=== PATIENT | male | born 1995 | race Two or more races ===

== ENCOUNTER 2022-05-26 23:40 | Emergency (ER) | payer BC, SELFPAY ==
[2022-05-26 23:43] VITALS: BP 135/85; PULSE 68; RESP 16; TEMP 36.4; O2SAT 97; BMI 27.0
--- NOTE | 2022-05-27 01:13 | CT_ITS ---
PROCEDURE INFORMATION: Exam: CT Cervical Spine Without Contrast Exam date and time: 05/27/2022 1:28 AM Age: 27 years old Clinical indication: Weakness; Additional info: Weakness/dizziness TECHNIQUE: Imaging protocol: Computed tomography of the cervical spine without contrast. Radiation optimization: All CT scans at this facility use at least one of these dose optimization techniques: automated exposure control; mA and/or kV adjustment per patient size (includes targeted exams where dose is matched to clinical indication); or iterative reconstruction. REPORTING DATA: Count of CT and Cardiac NM exams in prior 12 months: This patient has received 0 known CTs and 0 known cardiac nuclear medicine studies in the 12 months prior to the current study. COMPARISON: CT HEAD/BRAIN WO CON 05/27/2022 1:26 AM FINDINGS: Bones/joints: No acute fracture. Normal alignment. No significant disc bulge or herniation. No severe spinal canal stenosis. No significant neural foraminal narrowing. Lungs: Lung apices are normal. Soft tissues: Unremarkable. IMPRESSION: No acute findings.
--- NOTE | 2022-05-27 01:13 | CT_ITS ---
PROCEDURE INFORMATION: Exam: CT Head Without Contrast Exam date and time: 05/27/2022 1:26 AM Age: 27 years old Clinical indication: Dizziness and weakness, extremity; Additional info: Weakness/dizziness TECHNIQUE: Imaging protocol: Computed tomography of the head without contrast. Radiation optimization: All CT scans at this facility use at least one of these dose optimization techniques: automated exposure control; mA and/or kV adjustment per patient size (includes targeted exams where dose is matched to clinical indication); or iterative reconstruction. REPORTING DATA: Count of CT and Cardiac NM exams in prior 12 months: This patient has received 0 known CTs and 0 known cardiac nuclear medicine studies in the 12 months prior to the current study. COMPARISON: No relevant prior studies available. FINDINGS: Brain: Normal. No hemorrhage. Unremarkable white matter. No mass effect. Cerebral ventricles: No ventriculomegaly. Paranasal sinuses: Visualized sinuses are unremarkable. No fluid levels. Mastoid air cells: Visualized mastoid air cells are well aerated. Bones/joints: Unremarkable. No acute fracture. Soft tissues: Unremarkable. IMPRESSION: No acute intracranial abnormality.
[2022-05-27 01:20] LABS: Basophils # 0.1 K/mm3 (0-0.2); Basophils % 0.7 % (0.1-2.0); Eosinophils # 0.1 K/mm3 (0.0-0.4); Eosinophils % 1.1 % (0.1-12.0); Hematocrit 45.7 % (42.0-52.0); Hemoglobin 14.9 g/dL (14.1-18.0); Lymphocytes # 2.8 K/mm3 (0.7-4.5); Lymphocytes % 34.8 % (10-50); Mean Corpuscular HGB Conc 32.6 g/dL (31.8-35.4); Mean Corpuscular Hemoglobin 28.7 pg (27.0-31.2); Mean Corpuscular Volume 88.2 fl (80-94); Monocytes # 0.6 K/mm3 (0.1-1.0); Monocytes % 7.2 % (1.7-9.3); Neutrophils # 4.5 K/mm3 (1.8-7.8); Neutrophils % 56.2 % (37.0-80.0); Platelet Count 172 K/mm3 (142-424); Red Blood Count 5.18 M/mm3 (4.60-6.20); Red Cell Distribution Width 12.9 % (11.5-17.5); White Blood Count 8.1 K/mm3 (4.8-10.8)
[2022-05-27 01:33] LABS: Alanine Aminotransferase 39 U/L (12-78); Albumin Level 4.4 g/dl (3.5-5.0); Albumin/Globulin Ratio 1.5 (1.1-1.8); Alkaline Phosphatase 75 U/L (38-126); Aspartate Amino Transferase 37 U/L (17-59); Bilirubin,Total 0.5 mg/dl (0.2-1.3); Blood Urea Nitrogen 23 mg/dl (9-20); Calcium 8.8 mg/dl (8.4-10.2); Carbon Dioxide 27 mmol/L (22.0-30.0); Chloride 103 mmol/L (98-107); Creatinine Clearance Estimated 143 mL/min (50-200); Estimated Glomerular Filt Rate 88 ml/min (>60); GFR (African American) 107 ML/MIN (>60); Globulin 2.9 g/dL (1.3-3.2); Glucose 110 mg/dl (74-100); Sodium 138 mmol/L (136-145); Total Protein,Serum 7.3 g/dl (6.3-8.2)
[2022-05-27 01:41] LABS: C-Reactive Protein < 0.3 mg/L (0-4)
[2022-05-27 01:49] LABS: Procalcitonin 0.033 ng/mL (0.0-2.0)
[2022-05-27 01:55] LABS: Erythrocyte Sedimentation Rate 7 mm/hr (0-15)
--- NOTE | 2022-05-27 02:26 | CT_ITS ---
PROCEDURE INFORMATION: Exam: CTA Head With Contrast, Arteriography Exam date and time: 05/27/2022 3:04 AM Age: 27 years old Clinical indication: Dizziness and giddiness and weakness; Additional info: Head pain TECHNIQUE: Imaging protocol: Computed tomographic angiography of the head with contrast. Exam focused on the arteries. 3D rendering (Not supervised by radiologist): MIP and/or 3D reconstructed images were created by the technologist. Radiation optimization: All CT scans at this facility use at least one of these dose optimization techniques: automated exposure control; mA and/or kV adjustment per patient size (includes targeted exams where dose is matched to clinical indication); or iterative reconstruction. Contrast material: ISOVUE; Contrast volume: 100 ml; Contrast route: INTRAVENOUS (IV); REPORTING DATA: Count of CT and Cardiac NM exams in prior 12 months: This patient has received 0 known CTs and 0 known cardiac nuclear medicine studies in the 12 months prior to the current study. COMPARISON: CT HEAD/BRAIN WO CON 05/27/2022 1:26 AM FINDINGS: ANTERIOR CIRCULATION: Right internal carotid artery: Intracranial segment is patent with no significant stenosis. No aneurysm identified. Right middle cerebral artery: No occlusion or significant stenosis. No aneurysm identified. Right anterior cerebral artery: No occlusion or significant stenosis. No aneurysm identified. Left internal carotid artery: Intracranial segment is patent with no significant stenosis. No aneurysm identified. Left middle cerebral artery: No occlusion or significant stenosis. No aneurysm identified. Left anterior cerebral artery: No occlusion or significant stenosis. No aneurysm identified. POSTERIOR CIRCULATION: Right vertebral artery: No occlusion or significant stenosis. No aneurysm identified. Left vertebral artery: No occlusion or significant stenosis. No aneurysm identified. Basilar artery: No occlusion or significant stenosis. No aneurysm identified . Right posterior cerebral artery: No occlusion or significant stenosis. No aneurysm identified. Left posterior cerebral artery: No occlusion or significant stenosis. No aneurysm identified . Brain: No definite mass, mass effect, or midline shift. Cerebral ventricles: No ventriculomegaly. Bones/joints: Unremarkable. No acute fracture. Soft tissues: Unremarkable. IMPRESSION: No large vessel stenosis or occlusion.
--- NOTE | 2022-05-27 02:26 | CT_ITS ---
PROCEDURE INFORMATION: Exam: CTA Neck With Contrast Exam date and time: 05/27/2022 3:04 AM Age: 27 years old Clinical indication: Dizziness and giddiness and weakness; Additional info: Head pain TECHNIQUE: Imaging protocol: Computed tomographic angiography of the neck with contrast. 3D rendering (Not supervised by radiologist): MIP and/or 3D reconstructed images were created by the technologist. Radiation optimization: All CT scans at this facility use at least one of these dose optimization techniques: automated exposure control; mA and/or kV adjustment per patient size (includes targeted exams where dose is matched to clinical indication); or iterative reconstruction. Contrast material: ISOVUE; Contrast volume: 100 ml; Contrast route: INTRAVENOUS (IV); REPORTING DATA: Count of CT and Cardiac NM exams in prior 12 months: This patient has received 0 known CTs and 0 known cardiac nuclear medicine studies in the 12 months prior to the current study. COMPARISON: CT CERVICAL SPINE WO CON 05/27/2022 1:28 AM FINDINGS: Right common carotid artery: No stenosis. No dissection or occlusion. Right internal carotid artery: No stenosis of the extracranial segment. No dissection or occlusion. Right external carotid artery: No occlusion or stenosis of the origin. Left common carotid artery: No stenosis. No dissection or occlusion. Left internal carotid artery: No stenosis of the extracranial segment. No dissection or occlusion. Left external carotid artery: No occlusion or stenosis of the origin. Right vertebral artery: No stenosis. No dissection or occlusion. Left vertebral artery: No stenosis. No dissection or occlusion. Soft tissues: Normal. No significant soft tissue swelling. Bones/joints: No acute fracture. IMPRESSION: No occlusion or hemodynamically significant stenosis of the extracranial carotid systems and vertebral arteries. REFERENCES: NASCET CRITERIA. The degree of stenosis in the cervical segment of the internal carotid artery is based on NASCET criteria. Normal is no stenosis. Mild is less than 50% stenosis. Moderate is 50-69% stenosis. Severe is 70% to 99% stenosis. Total occlusion is no detectable patent lumen.
--- NOTE | 2022-05-27 02:47 | [facility].EDWEAK ---
Discharge Plan Disposition Patient Disposition: Home, Self-Care Chief Complaint: Weakness Referrals Follow up/Referrals: Channing Ndiaye APRN [Primary Care Provider] - See instructions Clinical Impressions Clinical Impression: Weakness, Dizziness Instructions Patient Instructions: DI for Muscle Weakness Discharge ED Provider: Jefferson (ED)Eulalio HPI General Chief complaint: Weakness Stated complaint: weak in knees,SOA,Pressure top of head,dizziness Time Seen by Provider: 05/27/22 02:47 Mode of Arrival: Ambulatory Source of Information: Patient, Spouse and Medical Record Limitations: No Limitations Description of Symptoms (Recalled from ER Triage Doc. by RN): Pt arrives to ED with c/o BLE weakness and dizziness that is occuring when he stands up to ambulate. Pt stated this started when he had an episode of severe head pressure and dizziness around 2230 tonight. 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 History of Present Illness HPI Narrative: pt with hx of lt sided bells palsy about 3 weeks ago - and finished meds about 1 week ago and over the last few days has dizzyness with standing and legs weak - no trauma or fever and no rash MD Complaint: generalized weakness Onset (ago): day(s) Duration: intermittent Location: generalized Migration: none Severity: moderate Context: recent illness Associated symptoms: denies other symptoms Related Data Allergies Allergy/AdvReac Type Severity Reaction Status Date / Time No Known Allergies Allergy Verified 05/17/22 15:35 [facility] Disclaimer: The information contained in this section may have been updated after the patient was seen, as this information can be updated by other users. Social History (Updated 05/07/22 @ 15:53 by Channing Ndiaye APRN) Smoking Status: Never smoker alcohol intake: former current occupational status: employed Travel in the last 8 weeks: None ROS Obtained: Yes All systems reviewed & no additional complaints except as documented Physical Exam General General appearance: alert Head Head exam: normocephalic Eye Eye exam: Present PERRL, EOMI and other (sl residual on lt eye); Absent nystagmus ENT ENT exam: Present normal oropharynx and mucous membranes moist Neck Neck exam: Present trachea midline Respiratory Respiratory exam: Present normal lung sounds bilaterally; Absent respiratory distress Cardiovascular Cardiovascular exam: Present regular rate; Absent systolic murmur Abdominal Exam Abdominal exam: Present soft Extremities Exam Extremities exam: Present full ROM Neurological Exam Neurological exam: Present alert, oriented X3, CN II-XII intact and reflexes normal; Absent motor sensory deficit Psychiatric Psychiatric exam: Present normal affect Skin Skin exam: Absent rash Medical Decision Making Medical Records Medical records reviewed: Yes I reviewed the patient's medical records. Luciano Inquiry Pt receiving controlled substance: No Vital Signs: 05/26/22 23:43 Temperature 97.5 F L Temperature Source Oral Pulse Rate [Right] 68 Respiratory Rate 16 Blood Pressure [Right Arm] 135/85 Blood Pressure Mean [Right Arm] 101 02 Sat by Pulse Oximetry 97 Oxygen Delivery Method Room Air Lab Data Lab results reviewed: Yes I reviewed the patient's lab results. Lab Results 05/27/22 01:08: WBC 8.1, RBC 5.18, Hgb 14.9, Hct 45.7, MCV 88.2, MCH 28.7, MCHC 32.6, RDW 12.9, Plt Count 172, MPV 9.0, Neut % (Auto) 56.2, Lymph % (Auto) 34.8, [place] % (Auto) 7.2, Eos % (Auto) 1.1, Baso % (Auto) 0.7, Neut # (Auto) 4.5, Lymph # (Auto) 2.8, [place] # (Auto) 0.6, Eos # (Auto) 0.1, Baso # (Auto) 0.1, ESR 7 05/27/22 01:08: Sodium 138, Potassium 4.0, Chloride 103, Carbon Dioxide 27, Anion Gap 12.0, BUN 23 H, Creatinine 1.00, Estimated Creat Clear 143, Estimated GFR 88, Est GFR ( Amer) 107, Glucose 110 H, Calcium 8.8, Total Bilirubin 0.5, AST 37, ALT 39, Alkaline Phosphatas
--- NOTE | 2022-05-27 04:21 | PC.NURSE ---
Rounded on pt. Updated visitor of POC.
[2022-05-27 05:05] VITALS: BP 110/67; BP 115/64; BP 121/79; PULSE 50; PULSE 55; PULSE 61
[2022-05-27 05:06] VITALS: BP 121/79; PULSE 60; RESP 18; TEMP 36.6; O2SAT 99
--- NOTE | 2022-05-27 05:06 | PC.NURSE ---
Dr. Paulino at
== END 2022-05-27 05:30 | disposition home or self-care (01) ==
PROVIDERS: Emergency Provider Emergency Medicine; PCP Nurse Practitioner Family
DX: R53.1 Weakness (principal); R42 Dizziness and giddiness; R06.02 Shortness of breath
CPT/HCPCS: 70450; 70496; 70498; 72125; 80053; 84145; 85025; 85651; 86140; 96360; 99284; 99285; Q9967

== ENCOUNTER → 2022-06-16 15:35 | Outpatient (CLI) | payer BC, SELFPAY ==
[2022-06-16 19:07] LABS: Semen Viscosity Stringy (Normal); Sperm Count 4 mil/mm3 (20-160); WBCs,Semen Small
[2022-06-16 19:08] LABS: Motility Quality Good Progression (Mod-Rapid); Sperm Motility 60 % (50-90)
[2022-06-16 19:40] LABS: 3Hr Motility Quality Moderate Progression (Mod-Rapid); 3Hr Sperm Motility 50 % (50-60)
[2022-06-16 19:41] LABS: Sperm Morphology Normal (Normal)
== END ==
LOC: LAB.DROPOF 15:36
PROVIDERS: PCP Nurse Practitioner Family; Visit Provider Obstetrics & Gynecology
DX: Z31.41 Encounter for fertility testing (principal)
CPT/HCPCS: 89320